=== PATIENT | male | born 1985 | race Caucasian/White ===

== ENCOUNTER 2017-06-30 09:53 | Emergency (ER) | payer SELFPAY ==
[2017-06-30 10:09] VITALS: BP 104/66
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
== END 2017-06-30 11:43 | disposition home or self-care (01) ==
LOC: UCEAST 09:53
DX: S29.012A Strain of muscle and tendon of back wall of thorax, initial encounter (principal); X50.0XXA Overexertion from strenuous movement or load, initial encounter; Y92.218 Other school as the place of occurrence of the external cause; Y99.0 Civilian activity done for income or pay
CPT/HCPCS: 99211; G0463

== ENCOUNTER 2017-07-04 13:31 | Emergency (ER) | payer SELFPAY ==
[2017-07-04 13:38] VITALS: BP 90/55
--- NOTE | 2017-07-04 13:40 | UC ---
Back Pain HPI - HPI Summary HPI Summary: 31 YEAR OLD MALE PRESENTS FOR A FOLLOW UP OF RESOLVING BACK PAIN. - History of Current Complaint Chief Complaint: UCBackPain Stated Complaint: RECHECK BACK INJURY Time Seen by Provider: 07/04/17 13:39 Hx Obtained From: Patient Onset/Duration: Resolved Severity Currently: None Pain Scale Used: 0-10 Numeric - 0 - Allergies/Home Medications Allergies/Adverse Reactions: Allergies Allergy/AdvReac Type Severity Reaction Status Date / Time No Known Allergies Allergy Verified 07/04/17 13:34 PMH/Surg Hx/FS Hx/Imm Hx Previously Healthy: Yes - Surgical History Surgical History: None - Family History Known Family History: Positive: None - Social History Alcohol Use: Rare Substance Use Type: Marijuana Smoking Status (MU): Never Smoked Tobacco Review of Systems Constitutional: Negative Skin: Negative Eyes: Negative ENT: Negative Respiratory: Negative Cardiovascular: Negative Gastrointestinal: Negative Genitourinary: Negative Motor: Negative Neurovascular: Negative Musculoskeletal: Negative Neurological: Negative Psychological: Negative All Other Systems Reviewed And Are Negative: Yes Physical Exam Triage Information Reviewed: Yes Vital Signs: Initial Vital Signs Temp 36.6 C 07/04/17 13:36 Pulse 71 07/04/17 13:36 Resp 16 07/04/17 13:36 BP 90/55 07/04/17 13:36 Pulse Ox 98 07/04/17 13:36 Eye Exam: Normal ENT Exam: Normal Dental Exam: Normal Neck exam: Normal Neck: Positive: 1 Respiratory Exam: Normal Cardiovascular Exam: Normal Abdominal Exam: Normal Musculoskeletal Exam: Normal Musculoskeletal: Positive: Other: - BACK PAIN Neurological Exam: Normal Psychological Exam: Normal Skin Exam: Normal Back Pain Course/Dx - Differential Dx/Diagnosis Provider Diagnoses: RESOLVING BACK PAIN Discharge - Discharge Plan Condition: Stable Disposition: HOME Patient Education Materials: Low Back Strain (ED), Acute Low Back Pain (ED) Forms: *Work Release Referrals: No Primary Care Phys,NOPCP [Primary Care Provider] -
== END 2017-07-04 13:48 | disposition home or self-care (01) ==
LOC: UCEAST 13:31
DX: M54.9 Dorsalgia, unspecified (principal)
CPT/HCPCS: 99211; G0463

== ENCOUNTER 2017-09-13 14:15 | Emergency (ER) | payer OTHER ==
[2017-09-13 14:55] VITALS: BP 112/62
--- NOTE | 2017-09-13 15:40 | RAD ---
HISTORY: Left wrist pain, subacute trauma COMPARISONS: January 29, 2016 VIEWS: 4, Frontal, lateral, oblique, and scaphoid deviation views of the left wrist FINDINGS: BONE DENSITY: Normal. BONES: There is a persistent transverse fracture of the scaphoid with callus formation. The fracture line is still visible. JOINTS: There is no arthropathy. ALIGNMENT: There is no dislocation. SOFT TISSUES: Unremarkable. OTHER FINDINGS: None. IMPRESSION: CHRONIC APPEARING FRACTURE OF THE SCAPHOID. THE FRACTURE LINE IS STILL VISIBLE.
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
--- NOTE | 2017-09-13 21:05 | ED ---
Progress - Progress Note Progress Note: Thumb spika splint made out of 4 inch orthoglass material applied to the hand, wrist forearm of the left arm. Neurovascular intact before and after application of this splint. Course/Dx - Course Course Of Treatment: 31 yr old with scaphoid fracture, and prior history of such in the same wrist. Will thumb spika the fracture. DARREN Whiting the orthopedic doc who has cared for his left scaipoid fracture in the past. - Diagnoses Provider Diagnoses: Scaphoid fracture, wrist, closed
== END 2017-09-13 16:08 | disposition home or self-care (01) ==
LOC: UCEAST 14:15
DX: S62.002A Unspecified fracture of navicular [scaphoid] bone of left wrist, initial encounter for closed fracture (principal); W51.XXXA Accidental striking against or bumped into by another person, initial encounter; Y92.9 Unspecified place or not applicable
CPT/HCPCS: 99212; G0463

== ENCOUNTER 2018-07-30 17:48 | Emergency (ER) | payer OTHER ==
[2018-07-30 18:15] VITALS: BP 104/58
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
[2018-07-30] MEDS ORDERED: Cyclobenzaprine TAB* 10 MG PO ONE (18:47)
== END 2018-07-30 19:03 | disposition home or self-care (01) ==
LOC: UCEAST 17:48
DX: S16.1XXA Strain of muscle, fascia and tendon at neck level, initial encounter (principal); S10.93XA Contusion of unspecified part of neck, initial encounter; S09.11XA Strain of muscle and tendon of head, initial encounter; S00.83XA Contusion of other part of head, initial encounter; Y04.0XXA Assault by unarmed brawl or fight, initial encounter; Y92.9 Unspecified place or not applicable
CPT/HCPCS: 99212; A9270-GY; G0463

== ENCOUNTER 2018-11-16 16:58 | Emergency (ER) | payer BC, OTHER ==
[2018-11-16 17:13] VITALS: BP 107/67
--- NOTE | 2018-11-16 18:06 | UC ---
Abdominal Pain Male HPI - HPI Summary HPI Summary: 33 y/o male presents to the urgent care c/o abd pain in the epigastric area, and pt has had diarrhea all day. 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 pt wants a work note. afebrile. pt states he had some cold sweats. - History of Current Complaint Chief Complaint: UCAbdominalPain Stated Complaint: STOMACH PAIN Time Seen by Provider: 11/16/18 18:04 Hx Obtained From: Patient Pain Intensity: 2 - Allergies/Home Medications Allergies/Adverse Reactions: Allergies Allergy/AdvReac Type Severity Reaction Status Date / Time No Known Allergies Allergy Verified 11/16/18 17:13 PMH/Surg Hx/FS Hx/Imm Hx - Surgical History Surgical History: Yes Surgery Procedure, Year, and Place: LEFT WRIST - Family History Known Family History: Positive: None - Social History Alcohol Use: None Substance Use Type: Marijuana Substance Use Comment - Amount & Last Used: occasional Smoking Status (MU): Never Smoked Tobacco Physical Exam Vital Signs: Initial Vital Signs Temp 98.6 F 11/16/18 17:09 Pulse 67 11/16/18 17:09 Resp 18 11/16/18 17:09 BP 107/67 11/16/18 17:09 Pulse Ox 99 11/16/18 17:09 Abd Pain Male Course/Dx - Differential Dx/Clinical Impression Differential Diagnosis/HQI/PQRI: Appendicitis, Constipation, Diverticulitis, Peptic Ulcer Disease, Renal Colic, Urinary Tract Infection Provider Diagnosis: Acute diarrhea, GERD (gastroesophageal reflux disease) Discharge - Sign-Out/Discharge Documenting (check all that apply): Patient Departure - d/c home All imaging exams completed and their final reports reviewed: No Studies - Discharge Plan Condition: Stable Disposition: HOME Prescriptions: Omeprazole CAP (NF) [Prilosec CAP* 20 MG] 20 mg PO DAILY #30 Patient Education Materials: Acute Diarrhea (ED) Forms: *Work Release Referrals: [facility] [place] [facility]IAN REFERRAL [Outside] - 2 Days Additional Instructions: 1- Please increase fluid intake with Gatorade or Pedialyte, eat soft meals. 2 Please take Omeprazole PO as directed to alleviate symptoms. Avoid spicy food , chocolates, citric fruits, tomato sauce, etc. Avoid long periods of time w/o eating. increase fluid and eat soft meals until symptoms improve. 3- If he develops fever or abdominal pain w/ recurrent episodes of diarrhea please go immediately to the ER, otherwise f/u with your PCP if diarrhea not resolving in 2-3 days - Billing Disposition and Condition Condition: STABLE Disposition: Home
== END 2018-11-16 18:40 | disposition home or self-care (01) ==
LOC: UCEAST 16:58
DX: R19.7 Diarrhea, unspecified (principal); K21.9 Gastro-esophageal reflux disease without esophagitis
CPT/HCPCS: 99211; G0463

== ENCOUNTER 2019-02-07 12:59 | Emergency (ER) | payer BC, OTHER ==
[2019-02-07 13:21] VITALS: BP 101/58
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
== END 2019-02-07 13:42 | disposition home or self-care (01) ==
LOC: UCEAST 12:59
DX: S09.90XA Unspecified injury of head, initial encounter (principal); S00.81XA Abrasion of other part of head, initial encounter; W22.8XXA Striking against or struck by other objects, initial encounter; Y92.10 Unspecified residential institution as the place of occurrence of the external cause; Y99.0 Civilian activity done for income or pay
CPT/HCPCS: 99211; G0463

== ENCOUNTER 2019-02-10 10:48 | Emergency (ER) | payer OTHER ==
--- NOTE | 2019-02-10 10:54 | UC ---
Head Injury HPI - HPI Summary HPI Summary: 33 yo male presents with headache. I saw pt 3 days ago for a low-impact work related head injury. His exam was normal at that time and he had a mild headache , but was otherwise feeling well. Yesterday he woke up with a "migraine" and noticed that his "peripheral vision was blurred". This lasted a few hours, but resolved with ibuprofen. Today he has a mild generalized headache, but no visual disturbances. Denies dizziness, n/v, weakness. - History Of Current Complaint Stated Complaint: MIGRAIN, BLURRY VISION Time Seen by Provider: 02/10/19 10:52 Hx Obtained From: Patient Onset/Duration: Sudden Onset Severity Currently: Mild Severity Initially: Mild Pain Intensity: 3 Pain Scale Used: 0-10 Numeric - Allergies/Home Medications Allergies/Adverse Reactions: Allergies Allergy/AdvReac Type Severity Reaction Status Date / Time No Known Allergies Allergy Verified 02/10/19 10:57 PMH/Surg Hx/FS Hx/Imm Hx - Additional Past Medical History Additional PMH: None - Surgical History Surgical History: Yes Surgery Procedure, Year, and Place: LEFT WRIST - Family History Known Family History: Positive: None - Social History Occupation: Employed Full-time Lives: With Family Alcohol Use: Rare Substance Use Type: Marijuana Substance Use Comment - Amount & Last Used: occasional Smoking Status (MU): Never Smoked Tobacco Review of Systems All Other Systems Reviewed And Are Negative: Yes Constitutional: Positive: Negative Skin: Positive: Negative Eyes: Positive: Blurred Vision Respiratory: Positive: Negative Cardiovascular: Positive: Negative Gastrointestinal: Positive: Negative Neurovascular: Positive: Negative Neurological: Positive: Headache Psychological: Positive: Negative Physical Exam - Summary Physical Exam Summary: GENERAL: NAD. WDWN. No pain distress. SKIN: No rashes, sores, ulcers, masses, lesions. HEENT: Head: AT/NC. No raccoon eyes or battles sign. Eyes: PERRLA. EOM intact. Ears: Hearing grossly normal. TMs intact, no bulging, erythema, or edema. No hemotympanum NECK: Supple. Nontender. FROM CHEST: CTAB. No r/r/w. No accessory muscle use. Breathing comfortably and in no distress. CV: RRR. Without m/r/g. Pulses intact. Brisk cap refill. MSK: FROM in B/L UEs and LEs with symmetric strength. NEURO: A&Ox3. 3 word recall, remote, recent memory, ability to follow 2-step directions, and attention intact. CN: II: Peripheral carrera intact. Vision normal. III, IV, : EOMI. No nystagmus. PERRLA. V: Sensations intact and symmetric. Opens mouth and clenches teeth. VII: No facial asymmetry. Forehead wrinkles. Grins, shuts eyes, frowns, puffs cheeks. VIII: Hearing intact to finger rub. IX, X: Swallows and coughs. Uvula midline. XI: Shrugs shoulders. Turns head against resistance. XII: No tongue deviation [id number] are intact. Gait with normal base. Romberg: maintains balance, no pronator drift. Normal speech. No facial drooping. PSYCH: Age appropriate behavior. Triage Information Reviewed: Yes Vital Signs: Vital Signs: Temp Pulse Resp BP Pulse Ox 98 F 70 17 105/63 99 02/10/19 10:53 02/10/19 10:53 02/10/19 10:53 02/10/19 10:53 02/10/19 10:53 Vital Signs Reviewed: Yes Head Injury Course/Dx - Course Course Of Treatment: CT: IMPRESSION: NO ACUTE INTRACRANIAL PATHOLOGY. Suspect post head-injury headache. Offered toradol or ibuprofen in the clinic, but pt declined. Advised to continue rest and limiting screen time. Will have him f/u with Occ Med given his continued symptoms. - Differential Dx/Diagnosis Provider Diagnosis: Headache Discharge - Sign-Out/Discharge Documenting (check all that apply): Patient Departure All imaging exams completed and their final reports reviewed: Yes - Discharge Plan Condition: Stable Disposition: HOME Patient Education Materials: Concussion (ED), Head Injury (ED) Referrals: No Primary Care Phys,NOPCP [Primary Care Provider] - Rustam Christine MD [Medical Doctor] - As Soon As Possible Additional Instructions: If you develop a fever, shortness of breath, chest pain, new or worsening symptoms - please call your PCP or go to the ED immediately. Your CT scan was normal today. 1) Given your continued symptoms due to your work related injury - It is very important that you follow up with Occupational Medicine (Worker's Comp) at the number below 2) Your symptoms should improve with continued rest and avoiding activities such as texting, screen time, and physical exertion. - Billing Disposition and Condition Condition: STABLE Disposition: Home
[2019-02-10 10:57] VITALS: BP 105/63
== END 2019-02-10 12:03 | disposition home or self-care (01) ==
LOC: UCEAST 10:48
DX: R51 Headache (principal)
CPT/HCPCS: 70450; 99211; G0463

== ENCOUNTER 2019-05-21 07:54 | Emergency (ER) | payer OTHER ==
[2019-05-21 08:07] VITALS: BP 99/61
--- NOTE | 2019-05-21 08:16 | UC ---
Headache HPI - HPI Summary HPI Summary: patient has history of migraines with aura. Pt awoke today with decreased peripheral vision (his normal aura symps), took 600mg ibuprofen and drank water , aura has resolved, headache is slightly improved, but he is unable to attend work d/t symps. - History Of Current Complaint Chief Complaint: UCHeadache Stated Complaint: SEVERE HEADACHE Time Seen by Provider: 05/21/19 08:08 Hx Obtained From: Patient Onset/Duration: Sudden Onset Currently Pain Is: Moderate Pain Intensity: 6 Timing: Constant Character: Typical Headache, Migraine Location of Headache: Diffuse Aggravating Factor(s): Bright Lights Allevating Factor(s): Rest, Other (Noted In Comments) - dark quiet room Associated Signs And Symptoms: Negative: Dizziness, Nausea, Neck Pain, Neck Stiffness, Decreased LOC Related History: Similar Episode/DX As: - migraine - Allergies/Home Medications Allergies/Adverse Reactions: Allergies Allergy/AdvReac Type Severity Reaction Status Date / Time No Known Allergies Allergy Verified 05/21/19 08:02 Home Medications: Home Medications Ibuprofen 600 mg PO ONCE PRN 05/21/19 [History Confirmed 05/21/19] PMH/Surg Hx/FS Hx/Imm Hx Previously Healthy: Yes Neurological History: Migraine - Surgical History Surgical History: Yes Surgery Procedure, Year, and Place: LEFT WRIST - Family History Known Family History: Positive: None - Social History Occupation: Employed Full-time Lives: With Family Alcohol Use: Rare Substance Use Type: Marijuana Substance Use Comment - Amount & Last Used: occasional Smoking Status (MU): Never Smoked Tobacco Review of Systems All Other Systems Reviewed And Are Negative: Yes Constitutional: Positive: Negative Skin: Positive: Negative. Negative: Rash Respiratory: Positive: Negative Cardiovascular: Positive: Negative Neurological: Positive: Headache Psychological: Positive: Negative Is Patient Immunocompromised?: No Physical Exam Triage Information Reviewed: Yes Appearance: Well-Appearing, No Pain Distress, Well-Nourished Vital Signs: Initial Vital Signs Temp 98.4 F 05/21/19 08:03 Pulse 51 05/21/19 08:03 Resp 18 05/21/19 08:03 BP 99/61 05/21/19 08:03 Pulse Ox 98 05/21/19 08:03 Vital Signs Reviewed: Yes Eye Exam: Normal Eyes: Positive: Conjunctiva Clear Neck exam: Normal Neck: Positive: Supple, Nontender Respiratory Exam: Normal Respiratory: Positive: Lungs clear Cardiovascular Exam: Normal Cardiovascular: Positive: RRR Neurological Exam: Normal Neurological: Positive: Alert Psychological Exam: Normal Skin Exam: Normal Headache Course/Dx - Differential Dx/Diagnosis Differential Diagnosis/HQI/PQRI: Migraine, Sinus Headache, Tension Headache Provider Diagnosis: Migraine Discharge - Sign-Out/Discharge Documenting (check all that apply): Patient Departure All imaging exams completed and their final reports reviewed: No Studies - Discharge Plan Condition: Stable Disposition: HOME Patient Education Materials: Migraine Headache (ED) Forms: *Work Release Referrals: No Primary Care Phys,NOPCP [Primary Care Provider] - Additional Instructions: Rest and drink plenty of fluids Start multivitamin like Centrum (with iron- for your low iron) Take Magnesium supplement 400mg every day to help decrease migraine headaches Report to ER if your headache worsens or new symptoms develop - Billing Disposition and Condition Condition: STABLE Disposition: Home - Attestation Statements Provider Attestation: I was available for consult. This patient was seen by the YEIM[facility]. The patient was not presented to , seen by or examined by me Malika Gonzalez MD
== END 2019-05-21 08:28 | disposition home or self-care (01) ==
LOC: UCEAST 07:54
DX: G43.909 Migraine, unspecified, not intractable, without status migrainosus (principal)
CPT/HCPCS: 99211; G0463

== ENCOUNTER 2019-06-12 17:49 | Emergency (ER) | payer OTHER ==
[2019-06-12 18:02] VITALS: BP 107/65
--- NOTE | 2019-06-12 18:18 | UC ---
Knee Pain HPI - HPI Summary HPI Summary: 33 yo male presents with LEFT knee swelling. 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 He went down to the ground on his RIGHT knee and is unsure if his left knee hit the ground. He continued working. Throughout the day he noticed some slight pain to his left knee. He went home after work and looked at his left knee and noticed swelling - prompting his visit to . He has not taken anything OTC for his discomfort. He is ambulatory without assistance. Denies numbness or tingling. - History of Current Complaint Chief Complaint: UCLowerExtremity Stated Complaint: KNEE INJURY Time Seen by Provider: 06/12/19 18:17 Hx Obtained From: Patient Onset/Duration: Sudden Onset Severity Initially: Mild Severity Currently: Mild Pain Intensity: 4 Pain Scale Used: 0-10 Numeric - Allergies/Home Medications Allergies/Adverse Reactions: Allergies Allergy/AdvReac Type Severity Reaction Status Date / Time No Known Allergies Allergy Verified 06/12/19 18:02 Home Medications: Home Medications NK [No Home Medications Reported] 06/12/19 [History Confirmed 06/12/19] PMH/Surg Hx/FS Hx/Imm Hx - Additional Past Medical History Additional PMH: None - Surgical History Surgical History: Yes Surgery Procedure, Year, and Place: LEFT WRIST - Family History Known Family History: Positive: None - Social History Occupation: Employed Full-time Lives: With Family Alcohol Use: Rare Substance Use Type: Marijuana Substance Use Comment - Amount & Last Used: occasional Smoking Status (MU): Never Smoked Tobacco Review of Systems All Other Systems Reviewed And Are Negative: No Constitutional: Positive: Negative Skin: Positive: Negative Respiratory: Positive: Negative Cardiovascular: Positive: Negative Neurovascular: Positive: Negative Musculoskeletal: Positive: Other: - Left knee swelling Neurological: Positive: Negative Psychological: Positive: Negative Physical Exam - Summary Physical Exam Summary: GENERAL: NAD. WDWN. No pain distress. SKIN: No rashes, sores, lesions, or open wounds. CHEST: No accessory muscle use. Breathing comfortably and in no distress. CV: Pulses intact popliteal, PT, and DP. Cap refill <2seconds MSK: FROM. Mild prepatellar edema with slight TTP. No erythema, warmth, or open wound. Strength 5/5. No patella apprehension. Negative Valarie, A/P drawer, Gypsy, and varus/valgus stress. NEURO: Alert. Sensations intact and symmetric B/L LEs PSYCH: Age appropriate behavior. Triage Information Reviewed: Yes Vital Signs: Initial Vital Signs Temp 98.8 F 06/12/19 18:00 Pulse 61 06/12/19 18:00 Resp 18 06/12/19 18:00 BP 107/65 06/12/19 18:00 Pulse Ox 97 06/12/19 18:00 Vital Signs Reviewed: Yes Diagnostics - Radiology Left knee Radiology Interpretation Completed By: ED Physician Summary of Radiographic Findings: No fx. STS prepatellar Knee Pain Course/Dx - Course Course Of Treatment: XR negative for fx. Suspect local inflammation/bursitis of prepatellar region. Advised to RICE and take ibuprofen. F/u if symptoms do not improve - Differential Dx/Diagnosis Provider Diagnosis: Prepatellar bursitis Discharge ED - Sign-Out/Discharge Documenting (check all that apply): Patient Departure All imaging exams completed and their final reports reviewed: No - Discharge Plan Condition: Stable Disposition: HOME Patient Education Materials: Swollen Knee Joint (ED) Forms: *Work Release Referrals: No Primary Care Phys,NOPCP [Primary Care Provider] - Additional Instructions: If you develop a fever, shortness of breath, chest pain, new or worsening symptoms - please call your PCP or go to the ED immediately. 1) Rest, ice, and elevate your knee intermittently throughout the day 2) Take ibuprofen 600mg every 6-8 hours as needed for discomfort 3) If your knee swelling worsens or if you develop increased pain - please be rechecked - Billing Disposition and Condition Condition: STABLE Disposition: Home
--- NOTE | 2019-06-13 10:15 | UC ---
- Progress Note Progress Note: Reviewed final xray report Gummii. No management change at this time. Course/Dx - Diagnoses Provider Diagnoses: Prepatellar bursitis Discharge ED - Sign-Out/Discharge Documenting (check all that apply): Post-Discharge Follow Up All imaging exams completed and their final reports reviewed: Yes - Discharge Plan Condition: Stable Disposition: HOME Patient Education Materials: Swollen Knee Joint (ED) Forms: *Work Release Referrals: No Primary Care Phys,NOPCP [Primary Care Provider] - Additional Instructions: If you develop a fever, shortness of breath, chest pain, new or worsening symptoms - please call your PCP or go to the ED immediately. 1) Rest, ice, and elevate your knee intermittently throughout the day 2) Take ibuprofen 600mg every 6-8 hours as needed for discomfort 3) If your knee swelling worsens or if you develop increased pain - please be rechecked - Billing Disposition and Condition Condition: STABLE Disposition: Home
== END 2019-06-12 18:36 | disposition home or self-care (01) ==
LOC: UCEAST 17:49
DX: M70.42 Prepatellar bursitis, left knee (principal)
CPT/HCPCS: 99211; G0463

== ENCOUNTER 2019-06-14 12:32 | Emergency (ER) | payer OTHER ==
[2019-06-14 12:55] VITALS: BP 89/56
--- NOTE | 2019-06-14 14:19 | UC ---
Knee Pain HPI - HPI Summary HPI Summary: 33 y/o male presents to the urgent care requesting a reevaluation of him left knee pain and swelling. 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 He was seen here at the clinic and a Left knee X-ray performed which was negative. He was Dx w/ Patella Bursitis. He was advised to rest and take Ibuprofen which he had been doing. However he still limping and he thinks he can't return to work full duty and his Employer requested an excuse from work for 3 days more. Pt state pain w/ walking is 4/ 10 associated w/ swelling over the patella. Pt denies fever, calf pain, numbness or tingling sensation, SOB, chest pain, abdominal pain N/V/D. - History of Current Complaint Chief Complaint: UCLowerExtremity Stated Complaint: RECHECK OF KNEE INJURY Time Seen by Provider: 06/14/19 14:15 Hx Obtained From: Patient Onset/Duration: Sudden Onset, Lasting Days - 3 days injury at work involving left knee, Still Present Severity Initially: Moderate Severity Currently: Moderate Pain Intensity: 4 Pain Scale Used: 0-10 Numeric Character: Dull, Aching Aggravating Factor(s): Movement, Prolonged Standing, Stairs Alleviating Factor(s): Rest, OTC Meds Associated Signs And Symptoms: Positive: Swelling - over left patella. Negative : Bruising, Fever, Numbness Able to Bear Weight: Yes Related History: Similar Episode/Dx as - Patella Bursitis - Risk Factors Septic Arthritis Risk Factor: Negative Gout Risk Factor: Negative - Allergies/Home Medications Allergies/Adverse Reactions: Allergies Allergy/AdvReac Type Severity Reaction Status Date / Time No Known Allergies Allergy Verified 06/14/19 12:55 PMH/Surg Hx/FS Hx/Imm Hx Previously Healthy: Yes - Pt denies PMHX - Surgical History Surgical History: Yes Surgery Procedure, Year, and Place: LEFT WRIST - Family History Known Family History: Positive: Diabetes - Social History Occupation: Employed Full-time Lives: With Family Alcohol Use: Rare Substance Use Type: Marijuana Substance Use Comment - Amount & Last Used: occasional Smoking Status (MU): Never Smoked Tobacco Review of Systems All Other Systems Reviewed And Are Negative: Yes Constitutional: Positive: Negative Skin: Positive: Negative Eyes: Positive: Negative ENT: Positive: Negative Respiratory: Positive: Negative Cardiovascular: Positive: Negative Gastrointestinal: Positive: Negative Motor: Positive: Negative Neurovascular: Positive: Negative Musculoskeletal: Positive: Decreased ROM - Left knee, Other: - Left knee pain and swelling over patella Neurological: Positive: Negative Psychological: Positive: Negative Is Patient Immunocompromised?: No Physical Exam - Summary Physical Exam Summary: Vital Signs Reviewed: Yes General: well developed, well nourished male sitting in the examining table w/o any apparent distress Eyes: Positive: Conjunctiva Clear - PERRLA, EOMI, fundi grossly normal ENT: Positive: Normal ENT inspection, Hearing grossly normal, Pharynx normal, TMs normal Neck: Positive: Supple, Nontender, No Lymphadenopathy Respiratory: Positive: Chest nontender, Lungs clear, Normal breath sounds, No respiratory distress Cardiovascular: Positive: RRR, No Murmur, Pulses Normal, Brisk Capillary Refill Abdomen Description: Positive: Nontender, No Organomegaly, Soft. Negative: CVA Tenderness (R), CVA Tenderness (L) Bowel Sounds: Positive: Present Musculoskeletal: Positive: Strength Intact, No Edema, left Knee: Pt is able to bear weight and ambulate with limping. No surface trauma, positive mild soft tissue swelling below left patella, or obvious effusion. No overlying erythema or warmth. The L knee is without obvious asymmetry or deformity when compared with the R knee. Decreased ROM of LF knee due to pain. Point tenderness to palpation of the patella, no effusion or ballottement. No tenderness over the infrapatellar tendon. Point tenderness over the medial joint line, No tenderness over the medial or lateral tibial plateaus. No tenderness over the proximal fibular head, No tenderness, fullness or mass of the popliteal fossa. No quadriceps tenderness. No laxity of the ACL. PCL, MCL, or LCL. no collateral ligament laxity to valgus or varus stress. Negative Valarie/Drawer sign. Negative Gypsy. Distal motor and neurovascular status intact. Neurological Exam: Normal Psychological Exam: Normal Skin Exam: Normal Triage Information Reviewed: Yes Vital Signs: Initial Vital Signs Temp 98 F 06/14/19 12:52 Pulse 59 06/14/19 12:52 Resp 17 06/14/19 12:52 BP 89/56 06/14/19 12:52 Pulse Ox 99 06/14/19 12:52 Knee Pain Course/Dx - Course Course Of Treatment: 33 y/o male presents to the urgent care requesting a reevaluation of him left knee pain and swelling. 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 He was seen here at the clinic and a Left knee X-ray performed which was negative. He was Dx w/ Patella Bursitis. He was advised to rest and take Ibuprofen which he had been doing. However he still limping and he thinks he can't return to work full duty and his Employer requested an excuse from work for 3 days more. Pt state pain w/ walking is 4/ 10 associated w/ swelling over the patella. Pt denies fever, calf pain, numbness or tingling sensation, SOB, chest pain, abdominal pain N/V/D. Hx obtained. Pt is hemodynamically stable, Vitals WNL. Pt w/ point tenderness over patella and mild soft tissue swelling below patella and decrease flexion and extension due to pain on examination. I think Pt needs to continue elevating his knee, keep knee immobilized w/ CRAIG bandage, and take Ibuprofen PO as directed. Pt advised to avoid strenuous exercise or heavy lifting. Pt given referral w/ Sports Medicine for further management since he can benefit from Physical Therapy. Pt given note for work and D/C instructions explained. Pt understood and agreed w/ plan of care. - Differential Dx/Diagnosis Differential Diagnosis/HQI/PQRI: Bursitis, Contusion, Fracture (Closed), Sprain , Strain, Tendonitis Provider Diagnosis: Left knee sprain, Prepatellar bursitis, left knee Discharge ED - Sign-Out/Discharge Documenting (check all that apply): Patient Departure - D/C home All imaging exams completed and their final reports reviewed: No Studies - Discharge Plan Condition: Stable Disposition: HOME Patient Education Materials: Knee Sprain (ED) Forms: *Work Release Referrals: [facility] [Provider Group] - 1 Week [facility] [place] [facility] REFERRAL [Outside] - 1 Week Additional Instructions: 1-Please take Ibuprofen PO q6-8hrs prns after meals as directed to alleviate pain and swelling. 2-Please apply ice, keep your knee immobilized with the CRAIG bandage. Elevate your knee at times to decrease swelling 3- Please f/u with Orthopedic from Sports Medicine or your PCP in 1 week is not improvement of symptoms for further evaluation and treatment. - Billing Disposition and Condition Condition: STABLE Disposition: Home - Attestation Statements Provider Attestation: Per institutional requirements, I have reviewed the chart, however, I was not consulted specifically or made aware of this patient by the midlevel provider. I did not personally evaluate, interact with , or disposition this patient.
== END 2019-06-14 14:35 | disposition home or self-care (01) ==
LOC: UCEAST 12:32
DX: S83.92XA Sprain of unspecified site of left knee, initial encounter (principal); W18.30XA Fall on same level, unspecified, initial encounter; Y92.9 Unspecified place or not applicable; M70.42 Prepatellar bursitis, left knee
CPT/HCPCS: 99211; G0463

== ENCOUNTER 2019-06-27 09:37 | Emergency (ER) | payer BC, OTHER ==
[2019-06-27 09:56] VITALS: BP 101/66
--- NOTE | 2019-06-27 10:46 | UC ---
Ear Complaint HPI - HPI Summary HPI Summary: 33 year old male with no PMH presents with right ear pain/ "popping" noise. Patient states this weekend had general malaise, feeling ill, faitgue, weakness , cough, sore throat, however much improved. Over past 24 hours, has noted R ear is "popping" with yawning, minimal pain. NO pain at rest, no fever/ chills. eating/ drinking well, denies GI symptoms. - History of Current Complaint Chief Complaint: UCGeneralIllness Stated Complaint: NAUSEA WEAK HEADACHE Time Seen by Provider: 06/27/19 10:25 Hx Obtained From: Patient Onset/Duration: Sudden Onset, Lasting Days Severity Currently: None Pain Intensity: 0 Pain Scale Used: 0-10 Numeric Associated Signs/Symptoms: Positive: URI Symptoms. Negative: Discharge, Hearing Loss, Foreign Body Sensation, Trauma to Ear, Swelling @ - Allergies/Home Medications Allergies/Adverse Reactions: Allergies Allergy/AdvReac Type Severity Reaction Status Date / Time No Known Allergies Allergy Verified 06/27/19 09:55 PMH/Surg Hx/FS Hx/Imm Hx Previously Healthy: Yes - Surgical History Surgical History: Yes Surgery Procedure, Year, and Place: LEFT WRIST - Family History Known Family History: Positive: None, Diabetes, Non-Contributory - Social History Alcohol Use: Rare Substance Use Type: Marijuana Substance Use Comment - Amount & Last Used: occasional Smoking Status (MU): Never Smoked Tobacco Review of Systems All Other Systems Reviewed And Are Negative: Yes Constitutional: Negative: Fever, Chills, Fatigue ENT: Positive: Ear Ache Neurological: Positive: Negative Psychological: Positive: Negative Is Patient Immunocompromised?: No Physical Exam Triage Information Reviewed: Yes Appearance: Well-Appearing, No Pain Distress, Well-Nourished Vital Signs: Initial Vital Signs Temp 98.5 F 06/27/19 09:52 Pulse 60 06/27/19 09:52 Resp 18 06/27/19 09:52 BP 101/66 06/27/19 09:52 Pulse Ox 97 06/27/19 09:52 Eyes: Positive: Conjunctiva Clear ENT: Positive: TMs normal - R with clear fluid posterior to TM, no erythema, no bulging., TM red - left side, minmal, Uvula midline. Negative: Pharyngeal erythema, Nasal congestion, Nasal drainage, TM bulging, TM dull, Tonsillar swelling, Tonsillar exudate Neck: Positive: Supple, Nontender, No Lymphadenopathy Respiratory: Positive: Chest non-tender, Lungs clear, Normal breath sounds, No respiratory distress, No accessory muscle use. Negative: Respiratory distress, Decreased breath sounds, Crackles, Rhonchi, Stridor, Wheezing Cardiovascular: Positive: RRR, No Murmur Psychological Exam: Normal Skin Exam: Normal Ear Complaint Course/Dx - Course Course Of Treatment: Likely viral illness with residual fluid behind tympanic membrane/ ear drum - Increase fluid intake to help rehydrate from fever - Continue to monitor symptoms, return if they worsen or if you develop fever - Over the counter medications such as antihistamines to decrease fluid sensation - Tylenol/ Motrin as needed for pain - Work note given - Differential Dx/Diagnosis Differential Diagnosis/HQI/PQRI: Cerumen Impaction, Perforated TM, Pharyngitis, URI Provider Diagnosis: Viral syndrome Discharge ED - Sign-Out/Discharge Documenting (check all that apply): Patient Departure All imaging exams completed and their final reports reviewed: No Studies - Discharge Plan Condition: Good Disposition: HOME Patient Education Materials: Viral Syndrome (ED) Forms: *Work Release Referrals: No Primary Care Phys,NOPCP [Primary Care Provider] - Additional Instructions: Likely viral illness with residual fluid behind tympanic membrane/ ear drum - Increase fluid intake to help rehydrate from fever - Continue to monitor symptoms, return if they worsen or if you develop fever - Over the counter medications such as antihistamines to decrease fluid sensation - Tylenol/ Motrin as needed for pain - Work note given - Billing Disposition and Condition Condition: GOOD Disposition: Home
== END 2019-06-27 10:43 | disposition home or self-care (01) ==
LOC: UCEAST 09:37
DX: B34.9 Viral infection, unspecified (principal)
CPT/HCPCS: 99211; G0463

== ENCOUNTER 2019-07-24 09:38 | Emergency (ER) | payer BC, OTHER ==
[2019-07-24 09:54] VITALS: BP 101/67
--- NOTE | 2019-07-24 10:14 | UC ---
Shoulder Pain HPI - HPI Summary HPI Summary: This patient is a 33-year-old male who presents to the urgent care with chief complaint of left shoulder pain and pain and site of the face especially on the left side of the jaw. 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 The patient doesn't have any pain on mastication, he is able to talk in full sentences without any pain, but he is able to move his left shoulder with minimal or no pain. The pain in the shoulders only when he raises his left hand up over his head. - History of Current Complaint Chief Complaint: UCTrauma Stated Complaint: SHOULDER AND JAW INJURY Time Seen by Provider: 07/24/19 09:56 Hx Obtained From: Patient Onset/Duration: Sudden Onset Timing: Intermittent Episode Lasting Severity Initially: Mild Severity Currently: Mild Pain Intensity: 4 - Allergies/Home Medications Allergies/Adverse Reactions: Allergies Allergy/AdvReac Type Severity Reaction Status Date / Time No Known Allergies Allergy Verified 07/24/19 09:55 PMH/Surg Hx/FS Hx/Imm Hx Previously Healthy: Yes - Surgical History Surgical History: Yes Surgery Procedure, Year, and Place: LEFT WRIST - Family History Known Family History: Positive: None, Diabetes, Non-Contributory - Social History Alcohol Use: Rare Substance Use Type: Marijuana Substance Use Comment - Amount & Last Used: occasional Smoking Status (MU): Never Smoked Tobacco Review of Systems All Other Systems Reviewed And Are Negative: Yes Constitutional: Positive: Negative Skin: Positive: Negative Eyes: Positive: Negative ENT: Positive: Negative Respiratory: Positive: Negative Cardiovascular: Positive: Negative Gastrointestinal: Positive: Negative Genitourinary: Positive: Negative Neurovascular: Positive: Negative Musculoskeletal: Positive: Arthralgia - Left shoulder pain Neurological: Positive: Negative Psychological: Positive: Negative Is Patient Immunocompromised?: No Physical Exam - Summary Physical Exam Summary: VITAL SIGNS: Reviewed. GENERAL: Patient is a well developed and nourished female who is lying comfortably in the stretcher. Patient is not in any acute respiratory distress. HEAD AND FACE: No signs of trauma. The patient is able to move open and close the jaw without any pain. There is no pain upon palpation in the left side of face. No ecchymosis, hematomas or skull depressions. No sinus tenderness. EYES: PERRLA, EOMI x 2, No injected conjunctiva, no nystagmus. EARS: Hearing grossly intact. Ear canals and tympanic membranes are within normal limits. MOUTH: Oropharynx within normal limits. NECK: Supple, trachea is midline, no adenopathy, no JVD, no carotid bruit, no c- spine tenderness, neck with full ROM. CHEST: Symmetric, no tenderness at palpation LUNGS: Clear to auscultation bilaterally. No wheezing or crackles. CVS: Regular rate and rhythm, S1 and S2 present, no murmurs or gallops appreciated. ABDOMEN: Soft, non-tender. No signs of distention. No rebound no guarding, and no masses palpated. Bowel sounds are normal. EXTREMITIES: FROM in all major joints, no edema, no cyanosis or clubbing. Left shoulder without any deformity, no ecchymosis, no hematomas, good pulses and good capillary refill. NEURO: Alert and oriented x 3. No acute neurological deficits. Speech is normal and follows commands. SKIN: Dry and warm Triage Information Reviewed: Yes Appearance: Well-Appearing Vital Signs: Initial Vital Signs Temp 98.3 F 07/24/19 09:52 Pulse 64 07/24/19 09:52 Resp 16 07/24/19 09:52 BP 101/67 07/24/19 09:52 Pulse Ox 98 07/24/19 09:52 Vital Signs Reviewed: Yes Shoulder Course/Dx - Course Course Of Treatment: E the patient has some muscular skeletal strain. There is no apparent deformities or ecchymotic increasing pain in the physical exam. Therefore the patient and I decided no x-rays. He was recommended to return to the urgent care with follow-up with primary care physician if the symptoms continue. She will take ibuprofen for pain. He will return to work on 07/26/19. - Differential Dx/Diagnosis Provider Diagnosis: Shoulder pain, Facial injury Discharge ED - Sign-Out/Discharge Documenting (check all that apply): Patient Departure All imaging exams completed and their final reports reviewed: No Studies - Discharge Plan Condition: Stable Disposition: HOME Patient Education Materials: Shoulder Sprain (ED) Referrals: No Primary Care Phys,NOPCP [Primary Care Provider] - [facility] [place] [facility] [Outside] Additional Instructions: Discharged home with F/U of PCP as needed. - Billing Disposition and Condition Condition: STABLE Disposition: Home
== END 2019-07-24 10:25 | disposition home or self-care (01) ==
LOC: UCEAST 09:38
DX: M25.512 Pain in left shoulder (principal); S09.93XA Unspecified injury of face, initial encounter; T14.8XXA Other injury of unspecified body region, initial encounter; X58.XXXA Exposure to other specified factors, initial encounter; Y92.9 Unspecified place or not applicable
CPT/HCPCS: 99211; G0463

== ENCOUNTER 2019-07-30 10:59 | Emergency (ER) | payer BC, OTHER ==
[2019-07-30 11:08] VITALS: BP 113/72
--- NOTE | 2019-07-30 11:51 | UC ---
UC General HPI - HPI Summary HPI Summary: 33 yo with one day history of headache and emesis x 1. No abdominal pain, diarrhea or fever. He is feeling better, but needs documentation for missed work. Currently has mild headache and overall is feeling better. - History of Current Complaint Chief Complaint: UCGeneralIllness Stated Complaint: VOMITING HEADACHE Time Seen by Provider: 07/30/19 11:44 Hx Obtained From: Patient Onset/Duration: Sudden Onset, Lasting Hours - 24 Onset Severity: Mild Current Severity: Mild Pain Intensity: 3 Associated Signs & Symptoms: Positive: Headache, Vomiting. Negative: Confusion , Cough, Dizziness, Fever, SOB, Wheezing - Allergy/Home Medications Allergies/Adverse Reactions: Allergies Allergy/AdvReac Type Severity Reaction Status Date / Time No Known Allergies Allergy Verified 07/30/19 11:08 PMH/Surg Hx/FS Hx/Imm Hx Previously Healthy: Yes - Surgical History Surgical History: Yes Surgery Procedure, Year, and Place: LEFT WRIST - Family History Known Family History: Positive: Diabetes, Non-Contributory - Social History Occupation: Employed Full-time Lives: With Family Alcohol Use: Rare Substance Use Type: Marijuana Substance Use Comment - Amount & Last Used: occasional Smoking Status (MU): Never Smoked Tobacco Review of Systems All Other Systems Reviewed And Are Negative: Yes Constitutional: Positive: Fatigue Skin: Positive: Negative Eyes: Positive: Negative ENT: Negative: Sore Throat Respiratory: Negative: Shortness Of Breath, Cough Cardiovascular: Negative: Palpitations, Chest Pain Gastrointestinal: Positive: Vomiting. Negative: Abdominal Pain, Diarrhea Genitourinary: Positive: Negative Neurological: Positive: Headache Psychological: Positive: Negative Is Patient Immunocompromised?: No Physical Exam Triage Information Reviewed: Yes Appearance: Well-Appearing, Pain Distress - mild Vital Signs: Initial Vital Signs Temp 98 F 07/30/19 11:05 Pulse 63 07/30/19 11:05 Resp 16 07/30/19 11:05 BP 113/72 07/30/19 11:05 Pulse Ox 100 07/30/19 11:05 Eye Exam: Normal Eyes: Positive: Conjunctiva Clear ENT: Positive: Pharynx normal Neck: Positive: Supple, Nontender, No Lymphadenopathy Respiratory: Positive: Lungs clear, Normal breath sounds Cardiovascular: Positive: RRR, No Murmur Abdomen Description: Positive: Nontender, No Organomegaly, Soft Musculoskeletal Exam: Normal Neurological Exam: Normal Psychological Exam: Normal Skin Exam: Normal Course/Dx - Course Course Of Treatment: Continue symptomatic treatment with follow up as needed. Off work note given. - Differential Dx - Multi-Symptom Differential Diagnoses: Other - viral syndrome - Diagnoses Provider Diagnosis: Viral syndrome Discharge ED - Sign-Out/Discharge Documenting (check all that apply): Patient Departure All imaging exams completed and their final reports reviewed: No Studies - Discharge Plan Condition: Good Disposition: HOME Forms: *Work Release Referrals: No Primary Care Phys,NOPCP [Primary Care Provider] - Additional Instructions: Continue high intake of fluids and rest. You are fit to return to work tomorrow. - Billing Disposition and Condition Condition: GOOD Disposition: Home
== END 2019-07-30 11:55 | disposition home or self-care (01) ==
LOC: UCEAST 10:59
DX: B34.9 Viral infection, unspecified (principal); R51 Headache; R11.10 Vomiting, unspecified; R53.83 Other fatigue
CPT/HCPCS: 99211; G0463

== ENCOUNTER 2019-08-15 12:39 | Emergency (ER) | payer OTHER ==
[2019-08-15 13:20] VITALS: BP 111/52
--- NOTE | 2019-08-15 13:59 | UC ---
Hand/Wrist HPI - HPI Summary HPI Summary: 33 yo male presents with left forearm injury. He tells me that this morning he was doing a restraint at work and somehow injury his left forearm. Hit it against something in the process of the restraint - unsure what. Has an abrasion to the area. Since that time has had swelling and bruising to the area. Denies numbness or tingling. Concerned as he had surgery in his left wrist years ago. - History Of Current Complaint Chief Complaint: UCUpperExtremity Stated Complaint: ARM INJURY Time Seen by Provider: 08/15/19 13:58 Hx Obtained From: Patient Onset/Duration: Sudden Onset Severity Initially: Moderate Severity Currently: Moderate Pain Intensity: 5 Pain Scale Used: 0-10 Numeric - Allergies/Home Medications Allergies/Adverse Reactions: Allergies Allergy/AdvReac Type Severity Reaction Status Date / Time No Known Allergies Allergy Verified 08/15/19 13:20 PMH/Surg Hx/FS Hx/Imm Hx - Additional Past Medical History Additional PMH: None - Surgical History Surgical History: Yes Surgery Procedure, Year, and Place: LEFT WRIST - Family History Known Family History: Positive: Diabetes, Non-Contributory - Social History Occupation: Employed Full-time Lives: With Family Alcohol Use: Rare Substance Use Type: Marijuana Substance Use Comment - Amount & Last Used: occasional Smoking Status (MU): Never Smoked Tobacco Review of Systems All Other Systems Reviewed And Are Negative: No Constitutional: Positive: Negative Skin: Positive: Bruising Respiratory: Positive: Negative Cardiovascular: Positive: Negative Neurovascular: Positive: Negative Musculoskeletal: Positive: Other: - Left forearm injury Neurological: Positive: Negative Psychological: Positive: Negative Physical Exam - Summary Physical Exam Summary: GENERAL: NAD. WDWN. No pain distress. SKIN: See MSK CHEST: No accessory muscle use. Breathing comfortably and in no distress. CV: Pulses intact radial and ulnar. Cap refill <2seconds MSK: LEFT FOREARM: mid ulnar aspect with ~4.5cm oval shaped hematoma with 4.0cm linear superficial abrasion. Mild TTP. LEFT WRIST FROM without pain. 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 NEURO: Alert. Sensations intact hand and all fingers. PSYCH: Age appropriate behavior. Triage Information Reviewed: Yes Vital Signs: Initial Vital Signs Temp 98.7 F 08/15/19 13:17 Pulse 69 08/15/19 13:17 Resp 18 08/15/19 13:17 BP 111/52 08/15/19 13:17 Pulse Ox 98 08/15/19 13:17 Vital Signs Reviewed: Yes Diagnostics - Radiology Forearm XR Radiology Interpretation Completed By: Radiologist Summary of Radiographic Findings: REPORT AND IMPRESSION: #. Normal articular alignment. #. Negative for fracture. #. Postsurgical change of internal screw fixation and bone graft placement at the scaphoid with bone graft harvest site at the distal metaphysis of the radius. #. Dorsal soft tissue swelling at the mid forearm. Hand/Wrist Course/Dx - Course Course Of Treatment: XR as above. Suspect hematoma. tdap updated today CRAIG wrap applied. Advised to RICE and f/u with Dr. Christine of [facility] if symptoms do not improve - Differential Dx/Diagnosis Provider Diagnosis: Traumatic hematoma of left forearm Discharge ED - Sign-Out/Discharge Documenting (check all that apply): Patient Departure All imaging exams completed and their final reports reviewed: Yes - Discharge Plan Condition: Stable Disposition: HOME Patient Education Materials: Contusion in Adults (ED), Hematoma (ED) Forms: *Work Release Referrals: No Primary Care Phys,NOPCP [Primary Care Provider] - Rustam Christine MD [Medical Doctor] - If Needed Additional Instructions: If you develop a fever, shortness of breath, chest pain, new or worsening symptoms - please call your PCP or go to the ED immediately. Rest, Ice, and elevate your arm to decrease pain and swelling May take tylenol/ibuprofen for discomfort If your symptoms worsen or do not improve within 2 days - please follow up with Dr. Christine of [facility] at the number below - Billing Disposition and Condition Condition: STABLE Disposition: Home
[2019-08-15] MEDS ORDERED: Tetan/Diph/Pertus SYR(Tdap)* 0.5 ML SYR(BOOSTRIX) use SYR contains LATEX IM ONE (14:31)
== END 2019-08-15 14:55 | disposition home or self-care (01) ==
LOC: UCEAST 12:39
DX: S50.12XA Contusion of left forearm, initial encounter (principal); X58.XXXA Exposure to other specified factors, initial encounter; Y92.9 Unspecified place or not applicable
CPT/HCPCS: 90471; 90715; 99211; G0463